=== PATIENT | female | born 1955 | race Hispanic/Latino ===

== ENCOUNTER 2019-07-16 08:20 | Inpatient (IN) | payer BC ==
[2019-07-16] MEDS ORDERED: Lidocaine Viscous Sol 2% 15 ml UD Cup ONE (08:52)
[2019-07-16] MEDS ORDERED: Mag-Al 1200 mg/1200 mg/30 ML UDCUP ONE (08:52)
[2019-07-16 08:55] LABS: #Eosinphils 0.2 thou/uL (0.0-0.7); #Lymphocytes 1.8 thou/uL (1.20-3.40); #Monocytes 0.6 thou/uL (0.11-0.59); %Basophils 0.5 % (0.0-1.0); %Eosinophils 1.7 % (0.0-10.0); %Lymphocytes 18.9 % (21.0-51.0); %Neutrophils 72.9 % (42.0-75.0); Hemoglobin 15.6 g/dL (12.0-16.0); Mean Corpuscular Hemoglobin 30.8 pg (27.0-31.0); Mean Corpuscular Volume 90.7 fL (78.0-98.0); Mean Platelet Volume 7.8 fL (7.4-10.4); Platelet Count 261 thou/uL (130-400); RBC Distribution Width 12.6 % (11.5-14.5); Red Blood Cell (RBC) Count 5.05 mill/uL (4.20-5.40); White Blood Cell (WBC) Count 9.6 thou/uL (4.8-10.8)
[2019-07-16 09:09] LABS: Bilirubin Negative (Negative); Blood, Urine Negative (Negative); Clarity Clear (Clear); Glucose, Urine (Dipstick) Normal (Negative); Leukocyte Negative Leu/uL (Negative); Nitrite Negative (Negative); Protein, Urine (Dipstick) 20 mg/dL (Neg-Trace); Urobilinogen Normal mg/dL (Less than 2)
[2019-07-16 09:09] LABS: ALT (SGPT) 42 U/L (8-55); AST (SGOT) 79 U/L (5-34); Alkaline Phosphatase 95 U/L (40-110); Anion Gap 13 mmol/L (10-20); BUN (Urea Nitrogen) 16 mg/dL (9.8-20.1); Bilirubin, Total 0.7 mg/dL (0.2-1.2); Calc. Creatinine Clearance 0 mL/min (70-130); Calcium 9.2 mg/dL (7.8-10.44); Carbon Dioxide 23 mmol/L (23-31); Chloride 101 mmol/L (98-107); Estimated GFR-MDRD 77; Globulin 3.7 g/dL (2.4-3.5); Glucose 159 mg/dL (80-115); Protein, Total 7.7 g/dL (6.0-8.3); Sodium 133 mmol/L (136-145)
[2019-07-16 09:22] LABS: Lipase 3171 U/L (8-78)
--- NOTE | 2019-07-16 09:23 | ULT ---
Gallbladder ultrasound: Multiple grayscale images of right upper quadrant obtained according to protocol. INDICATION: Pain FINDINGS: Liver: Increased echogenicity Gallbladder: Cholelithiasis. Gallbladder wall: Borderline in size, approximating 3 mm in thickness. Gong's Sign: Negative Common bile duct is normal. Ascites: None IMPRESSION: Cholelithiasis. Borderline size gallbladder wall. Correlate clinically to exclude evidence of cholecy stitis. Increased echogenicity of liver which may represent hepatic steatosis.
--- NOTE | 2019-07-16 10:02 | RAD ---
PORTABLE AP CHEST: Date: 07/16/19 HISTORY: Epigastric pain on and off for 1 year. Pain is worse today. COMPARISON: 08/09/12. FINDINGS: Cardiac silhouette is magnified by projection. Pulmonary vasculature is within normal limits. There i s minimal linear and hazy density at the left lung base which is similar to prior study, likely relat ed to combination of epicardial fat pad and mild linear scarring. This was also seen on CT thorax on 08/13/12. Lungs are otherwise clear. There has been no interval change from the prior exam. IMPRESSION: No acute cardiopulmonary process. POS: C
[2019-07-16] MEDS ORDERED: Morphine 4 MG/ML VIAL ONE (10:13)
[2019-07-16] MEDS ORDERED: Sodium Chloride 0.9% 1,000 ML IV SCH (12:44)
[2019-07-16] MEDS ORDERED: Ondansetron PF 4 MG/2 ML Vial IVP PRN (12:44)
[2019-07-16] MEDS ORDERED: Ondansetron ODT 4 MG TAB SL PRN (12:44)
[2019-07-16 12:45] VITALS: BMI 34.0
[2019-07-16] MEDS ORDERED: HYDROcodone/Acetaminophen 5/325 mg Tablet PO PRN (14:07)
[2019-07-16] MEDS ORDERED: Acetaminophen 325 MG TAB PO PRN (14:07)
[2019-07-16] MEDS ORDERED: Acetaminophen 650 MG Suppository PR PRN (14:07)
[2019-07-16] MEDS ORDERED: HumaLOG 300 UNITS/3 ML VIAL SC PRN ×2 (14:09)
[2019-07-16] MEDS ORDERED: Dextrose 5% in Water 1,000 ML IV PRN (14:09)
[2019-07-16] MEDS ORDERED: Dextrose 50% Abboject 50 ML SYRINGE SLOW IVP PRN (14:09)
[2019-07-16] MEDS ORDERED: Dextrose 5 %-0.45 % NaCl 1,000 ML IV SCH (14:30)
--- NOTE | 2019-07-16 16:00 | PDOC.HHP ---
Hospitalist HPI - History of Present Illness Abdominal pain History of Present Illness: Mrs. Rutledge is a pleasant 64 year old woman presenting with severe abdominal pain, 10/10, that started this morning. She states it was in the epigastric region and sharp. Reports having issues with bouts of abdominal pain for several years that usually would improve with taking in more water. She was seen by her primary care physician and states she was never found to have any issues that explained her pain. Denies any previous EGD. She is unsure what tests were done in the past. In recent months her abdominal pain has become more frequent. She saw her PCP last week and had an abdo ultrasound done which she states was normal. At present her pain is a 5/10 in severity. She feels significantly better than she did this morning. ED Course: In the ED she was given Morphine for pain which did help. She was given 1 L of IV fluids and a GI cocktail. Labs were notable for a lipase of 3,171. GB US showed cholelithiasis with borderline size gallbladder wall. Increased echogenicity of the liver present felt to be due to hepatic steatosis. She was placed NPO and consultations were placed to GI as well as General Surgery. Hospitalist ROS - Review of Systems Constitutional: denies: fever, chills, sweats, weakness, malaise, other Eyes: denies: pain, vision change, conjunctivae inflammation, eyelid inflammation, redness, other ENT: denies: ear pain, ear discharge, nose pain, nose discharge, nose congestion , mouth pain, mouth swelling, throat pain, throat swelling, other Respiratory: denies: cough, dry, shortness of breath, hemoptysis, SOB with excertion, pleuritic pain, sputum, wheezing, other Cardiovascular: denies: chest pain, palpitations, orthopnea, paroxysmal noc. dyspnea, edema, light headedness, other Gastrointestinal: reports: nausea, abdominal pain. denies: vomiting, diarrhea, constipation, melena, hematochezia, other Genitourinary: denies: dysuria, frequency, incontinence, hematuria, retention, other Musculoskeletal: denies: neck pain, shoulder pain, arm pain, back pain, hand pain, leg pain, foot pain, other Skin: denies: rash, lesions, lorena, bruising, other Neurological: denies: weakness, numbness, incoordination, change in speech, confusion, seizures, other - Medication Medications: Active Medications Generic Name Dose Route Start Last Admin Trade Name Billyq PRN Reason Stop Dose Admin Dextrose/Sodium Chloride 1,000 mls @ 50 mls/hr 07/16/19 14:30 07/16/19 15:45 D5 1/2 Ns IV 1,000 mls .Q20H CITLALLI Administration Hospitalist History - Past Medical History Source: patient Cardiac: reports: HTN, Hyperlipidemia Endocrine: reports: Diabetes - Past Surgical History Past Surgical History: reports: Hysterectomy - Family History Family History: reports: no pertinent history - Social History Smoking Status: Never smoker Alcohol: reports: None Drugs: reports: none Activity level: independent ambulation - Exam General Appearance: NAD, awake alert Eye: PERRL, anicteric sclera ENT: normocephalic atraumatic, no oropharyngeal lesions, moist mucosa Neck: supple, symmetric, no JVD, no lymphadenopathy Heart: RRR, no murmur, no gallops, no rubs, normal peripheral pulses Respiratory: CTAB, no wheezes, no rales, no ronchi, normal chest expansion Gastrointestinal: soft, non-tender, non-distended, normal bowel sounds, no palpable masses, no guarding, no rigidity Extremities: no cyanosis, no clubbing, no edema Skin: normal turgor, no lesions, no rashes Neurological: cranial nerve grossly intact Musculoskeletal: normal tone, normal strength, no muscle wasting Psychiatric: normal affect, normal behavior, A&O x 3 Hospitalist Results - Labs Result Diagrams: 07/16/19 08:45 07/16/19 08:45 Lab results: WBC 9.6 thou/uL (4.8-10.8) 07/16/19 08:45 Hgb 15.6 g/dL (12.0-16.0) 07/16/19 08:45 Hct 45.8 % (36.0-47.0) 07/16/19 08:45 MCV 90.7 fL (78.0-98.0) 07/16/19 08:45 Plt Count 261 thou/uL (130-400) 07/16/19 08:45 Neutrophils % 72.9 % (42.0-75.0) 07/16/19 08:45 Sodium 133 mmol/L (136-145) L 07/16/19 08:45 Potassium 4.0 mmol/L (3.5-5.1) 07/16/19 08:45 Chloride 101 mmol/L (98-107) 07/16/19 08:45 Carbon Dioxide 23 mmol/L (23-31) 07/16/19 08:45 BUN 16 mg/dL (9.8-20.1) 07/16/19 08:45 Creatinine 0.76 mg/dL (0.6-1.1) 07/16/19 08:45 Glucose 159 mg/dL (80-115) H 07/16/19 08:45 Calcium 9.2 mg/dL (7.8-10.44) 07/16/19 08:45 Total Bilirubin 0.7 mg/dL (0.2-1.2) 07/16/19 08:45 AST 79 U/L (5-34) H 07/16/19 08:45 ALT 42 U/L (8-55) 07/16/19 08:45 Alkaline Phosphatase 95 U/L (40-110) 07/16/19 08:45 Troponin I Less than 0.010 ng/mL (< 0.028) 07/16/19 08:38 Serum Total Protein 7.7 g/dL (6.0-8.3) 07/16/19 08:45 Albumin 4.0 g/dL (3.4-4.8) 07/16/19 08:45 Lipase 3171 U/L (8-78) H 07/16/19 08:45 Urine Ketones Negative mg/dL (Negative) 07/16/19 08:38 Urine Blood Negative (Negative) 07/16/19 08:38 Urine Nitrite Negative (Negative) 07/16/19 08:38 Ur Leukocyte Esterase Negative Karrie/uL (Negative) 07/16/19 08:38 - Radiology Interpretation US - abdomen Status: report reviewed by me Hospitalist H&P A/P - Problem (1) Abdominal pain Code(s): R10.9 - UNSPECIFIED ABDOMINAL PAIN Status: Acute (2) Pancreatitis Code(s): K85.90 - ACUTE PANCREATITIS WITHOUT NECROSIS OR INFECTION, UNSP Status: Acute (3) Cholelithiasis Code(s): K80.20 - CALCULUS OF GALLBLADDER W/O CHOLECYSTITIS W/O OBSTRUCTION Status: Acute (4) Hypertension Code(s): I10 - ESSENTIAL (PRIMARY) HYPERTENSION Status: Chronic (5) Diabetes mellitus Code(s): E11.9 - TYPE 2 DIABETES MELLITUS WITHOUT COMPLICATIONS Status: Chronic (6) Hyperlipidemia Code(s): E78.5 - HYPERLIPIDEMIA, UNSPECIFIED Status: Chronic - Plan Plan: Continue IVF. Will add-on lactic acid. Lipid panel ordered. Awaiting GI and General Surgery review. Patient for MRCP as per ED physician. Monitor BP. Resume home medication once reconciled. Monitor glucose, will hold home meds and cover with ISS for now. Code Status: FULL. Surrogate decision maker is her daughter Alana Allen. Case discussed with Dr. Obregon who agrees with plan as above.
--- NOTE | 2019-07-16 16:16 | PDOC.EVN ---
Event Note - Event Note Event Note: patient reviewed with Oli STORY. agree with current management. she is being seen by gen surg at this time
--- NOTE | 2019-07-16 16:19 | CON ---
DATE OF CONSULTATION: 07/16/2019 This is Reynaldo Trevizo PA-C dictating a report for Bassam De La Vega DO. REQUESTING PHYSICIAN: Santiago Bradford DO HISTORY OF PRESENT ILLNESS: The patient is a 64-year-old woman, who has had abdominal pain off and on intermittently for greater than a year. This morning, the patient woke with severe epigastric pain significant enough that she came to the emergency department, where she underwent evaluation and examination and was noted to have pancreatitis and also cholelithiasis, at which time, we were asked to evaluate the patient for possible cholecystectomy. The patient denies alcohol use, drug use, fevers, chills, night sweats, or unexplained weight loss. Positive for nausea. No vomiting or diarrhea. The patient has no ill contacts. ALLERGIES: LISINOPRIL. CURRENT MEDICATIONS: Metformin, glipizide, Norvasc. PAST MEDICAL HISTORY: Type 2 diabetes, hyperlipidemia, hypertension. PAST SURGICAL HISTORY: Hysterectomy. SOCIAL HISTORY: The patient lives with family. She smoked cigarettes more than 10 years ago. Denies drug or alcohol use. PHYSICAL EXAMINATION: VITAL SIGNS: Temperature 97.9, heart rate 52, blood pressure 118/63, respirations 16, oxygen saturation 97% on room air. GENERAL: The patient is resting comfortably on the surgical floor. She is in bed. She is awake, alert, and conversant. The patient primarily speaks Turkish, but is able to communicate in Stateless and also had family members at bedside to assist. HEENT: Unremarkable. LUNGS: Clear to auscultation with good inspiratory and expiratory effort. The patient states she did have some slight epigastric pain with deep inspiration. HEART: Regular rate and rhythm. ABDOMEN: Soft, nondistended with a positive Gong sign. Right upper quadrant pain. Tenderness to palpation to mid epigastric, but no gross peritoneal signs. The patient had hypoactive bowel sounds. BACK: Unremarkable. EXTREMITIES: Neurovascularly intact x4. LABORATORY FINDINGS: White blood cell count 9.6, hemoglobin 15.6, hematocrit 45.8, platelets 261. Sodium 133, potassium 4.0, chloride 101, CO2 of 23, BUN 16, creatinine 0.76, glucose 159, total bilirubin 0.7, AST 79, ALT 42, alkaline phosphatase 95. Troponin less than 0.010. Lipase 3171. Urinalysis is unremarkable. RADIOGRAPHIC REPORTS: AP chest x-ray shows no acute cardiopulmonary process. Abdominal ultrasound shows cholelithiasis, borderline gallbladder wall size at 3 mm in thickness. Common bile duct is normal at 5 mm with increased echogenicity of the liver, which may represent hepatic steatosis. ASSESSMENT: 1. Acute pancreatitis. 2. Cholelithiasis. 3. Abdominal pain secondary to above. PLAN: Plan will be to keep the patient n.p.o. Repeat labs in the morning. Fluid resuscitation per the primary team. Has been informed that Gastroenterology will also be evaluating the patient for ERCP or MRCP. We will continue to follow along. We will repeat the labs in the morning, specifically LFTs. The evaluation and examination were done with Dr. De La Vega at the time of dictation. Job ID: [id number]
[2019-07-16 16:24] LABS: Lactic Acid 2.3 mmol/L (0.5-2.2)
[2019-07-16] MEDS: Morphine 4 MG/ML VIAL SLOW IVP SCH ×2 (16:46→19:45)
--- NOTE | 2019-07-16 20:56 | CON ---
DATE OF CONSULTATION: 07/16/2019 REASON FOR CONSULTATION: Abdominal pain. HISTORY OF PRESENT ILLNESS: Ms. Rutledge is a 64-year-old female, who was admitted through the ER with the above problem. History is obtained through translation by her son. Reportedly, the patient has had recurrent episodic severe abdominal pain for the last 5 years. The pain had lasted for almost a year until it hit her again this morning that was the most intense episode that she has had to date. This prompted the ER evaluation. The pain is described as sharp and stabbing, localized in the epigastrium, at times radiating to her back. She did have nausea, but without any vomiting. She denies any fever. She denies having had any dark urine, acholic stool, or jaundice. Currently, the pain has greatly subsided. In the course of ER evaluation, she was noted to have a lipase of 3171 and cholelithiasis on ultrasound. The common bile duct is normal measured at 5 mm. Her LFT showed normal bilirubin and alkaline phosphatase and ALT with mild elevation of AST to 79. Currently, she is fine without any other complaint. PAST MEDICAL HISTORY: 1. Adult onset diabetes. 2. Hyperlipidemia. 3. Hypertension. 4. Status post either tubal ligation or hysterectomy from translation. ALLERGIES: LISINOPRIL. HOME MEDICATIONS: Atorvastatin 10 mg daily, glipizide XL 5 mg daily, Norvasc 10 mg daily, and metformin 500 mg daily. SOCIAL HISTORY: The patient denies any tobacco or alcohol usage. FAMILY HISTORY: Negative for any known GI problem, liver disease, or GI malignancy. REVIEW OF SYSTEMS: Ten-point review of systems did not show any other symptoms other than stated in the HPI. PHYSICAL EXAMINATION: VITAL SIGNS: Temperature is 97.9, blood pressure 117/66, pulse of 50. GENERAL: She is alert, conversant. In no distress. HEENT: Anicteric sclerae. Oropharynx is clear. NECK: Supple. CV: Normal S1 and S2. Regular rate and rhythm. CHEST: Breath sounds. ABDOMEN: Protuberant, but soft and nontender. She has active bowel sounds. No bruit. EXTREMITIES: No edema. LABORATORY DATA: WBCs 9.6, hemoglobin 15.6, and platelet count of 261. Electrolytes within normal range. Creatinine 0.76, bilirubin 0.7, alkaline phosphatase 95, AST 79, ALT 42. Serum lipase 3171. DIAGNOSTIC DATA: Abdominal ultrasound showed cholelithiasis, common bile duct 5 mm. ASSESSMENT: 1. Mild pancreatitis, likely biliary. 2. Cholelithiasis. 3. With normal bilirubin and alkaline phosphatase and ultrasound showing common duct measuring only 5 mm, it is unlikely that she has active choledocholithiasis. It is likely that she had passed a stone and in the process, caused her mild pancreatitis. At this point, there is no indication for endoscopic retrograde cholangiopancreatography. RECOMMENDATION: I would trend her LFT and lipase in the morning. If her lipase decreases and LFTs particularly bilirubin and alkaline phosphatase remained normal, then I would proceed with laparoscopic cholecystectomy with IOC. If she has increase in her LFT, then we will recommend preoperative ERCP. Job ID: [id number]
[2019-07-16] MEDS ORDERED: Famotidine/PF 20 mg/2ml Vial SLOW IVP SCH (21:00)
--- NOTE | 2019-07-17 01:18 | PRG ---
DATE OF SERVICE: 07/16/2019 SUBJECTIVE: The patient was seen this evening during rounds. She was resting comfortably and asleep at the time of my evaluation. Nursing reported no acute events. OBJECTIVE: VITAL SIGNS: Temperature 97.9, pulse 51, respirations 16, oxygen saturation 96% on room air, and blood pressure 129/70. GENERAL: Well appearing elderly female, lying in bed with no signs of acute distress. PULMONARY: Equal chest rise and fall. No signs of acute respiratory distress. ASSESSMENT: 1. Mild acute pancreatitis. 2. Cholelithiasis. 3. Acute abdominal pain, improved. PLAN: GI was consulted, who recommended follow up LFTs and lipase in the morning before further recommendations. The patient will likely receive a laparoscopic cholecystectomy with IOC versus ERCP in the morning depending on laboratory results. Continue current n.p.o. status and pain regimen. Surgery to re-evaluate labs and patient in the morning and coordinate care with GI. Job ID: [id number]
[2019-07-17 04:58] LABS: #Basophils 0.1 thou/uL (0.0-0.2); #Eosinphils 0.2 thou/uL (0.0-0.7); #Lymphocytes 1.4 thou/uL (1.20-3.40); #Monocytes 0.4 thou/uL (0.11-0.59); #Neutrophils 3.3 thou/uL (1.40-6.50); %Basophils 1.1 % (0.0-1.0); %Eosinophils 4.3 % (0.0-10.0); %Lymphocytes 26.3 % (21.0-51.0); %Monocytes 7.4 % (0.0-10.0); %Neutrophils 60.9 % (42.0-75.0); Hemoglobin 14.6 g/dL (12.0-16.0); Mean Corpuscular HGB CONC 33.8 g/dL (32.0-36.0); Mean Corpuscular Volume 91.7 fL (78.0-98.0); Platelet Count 228 thou/uL (130-400); RBC Distribution Width 12.6 % (11.5-14.5); White Blood Cell (WBC) Count 5.4 thou/uL (4.8-10.8)
[2019-07-17 05:20] LABS: ALT (SGPT) 214 U/L (8-55); AST (SGOT) 156 U/L (5-34); Albumin 3.4 g/dL (3.4-4.8); Alkaline Phosphatase 93 U/L (40-110); Anion Gap 10 mmol/L (10-20); BUN (Urea Nitrogen) 13 mg/dL (9.8-20.1); Bilirubin, Total 0.5 mg/dL (0.2-1.2); Calc. Creatinine Clearance 112 mL/min (70-130); Calcium 8.3 mg/dL (7.8-10.44); Carbon Dioxide 25 mmol/L (23-31); Chloride 105 mmol/L (98-107); Cholesterol 153 mg/dl (< 200 Desired); Estimated GFR-MDRD 81; Globulin 3.1 g/dL (2.4-3.5); Glucose 141 mg/dL (80-115); HDL Cholesterol 51 mg/dL (>60 Neg Risk); LDL Cholesterol, Calculated 72 mg/dL; Lipase 442 U/L (8-78); Potassium 3.8 mmol/L (3.5-5.1); Protein, Total 6.5 g/dL (6.0-8.3); Sodium 136 mmol/L (136-145); Triglycerides 151 mg/dL (Less than 150)
[2019-07-17] MEDS ORDERED: traMADol HCl 50 MG TAB PO PRN ×2 (07:42)
[2019-07-17] MEDS ORDERED: Ketorolac Tromethamine 30 MG/ML VIAL IVP PRN (07:42)
[2019-07-17] MEDS ORDERED: Acetaminophen 1,000 MG in Premix Bag 1 BAG IVPB PRN (07:42)
[2019-07-17] MEDS ORDERED: Ondansetron ORAL SOLN. 4 MG/5 ML UDCUP PO PRN ×2 (07:42)
[2019-07-17] MEDS ORDERED: Ondansetron PF 4 MG/2 ML Vial IVP PRN (07:42)
[2019-07-17] MEDS ORDERED: Ketorolac Tromethamine 30 MG/ML VIAL IVP SCH (07:45)
[2019-07-17] MEDS ORDERED: Acetaminophen 1,000 MG in Premix Bag 1 BAG IVPB SCH (07:45)
[2019-07-17] MEDS ORDERED: Bupivacaine HCl 0.5%/Epinephrine 1:200,000/PF 30 ml Vial ONE (07:58)
[2019-07-17] MEDS ORDERED: Fentanyl 100 MCG/2 ML VIAL ONE (08:03)
[2019-07-17] MEDS ORDERED: Midazolam HCl 2 mg/2 ml Vial ONE (08:03)
[2019-07-17] MEDS ORDERED: HYDROmorphone 0.5 MG/0.5 ML SYRINGE ONE (08:04)
[2019-07-17] MEDS ORDERED: Ibuprofen 600 MG TAB PO PRN (08:32)
[2019-07-17] MEDS ORDERED: Acetaminophen 500 MG TAB PO PRN (08:32)
[2019-07-17] MEDS ORDERED: Ketorolac Tromethamine 30 MG/ML VIAL ONE (08:38)
[2019-07-17] MEDS ORDERED: Iothalamate Meglumine 60% 50 ML VIAL FS ONE (08:53)
[2019-07-17] MEDS: Amlodipine 10 MG TAB PO SCH (08:58)
[2019-07-17] MEDS: Atorvastatin Calcium 10 MG TAB PO SCH (08:58)
[2019-07-17] MEDS: metFORMIN 500 MG TAB PO SCH (08:58)
--- NOTE | 2019-07-17 09:35 | CON ---
DATE OF CONSULTATION: HISTORY OF PRESENT ILLNESS: Alana Rutledge is a 64-year-old Turkish-speaking only female, morbidly obese, diabetes, and elevated cholesterol, has been having biliary colic for several years. She had a severe episode and presented to the emergency room with normal liver function test, white count of 5, hemoglobin of 14, lipase minimally elevated at 442, glucose is 100 to 136. She had gallstones on an ultrasound and normal bile duct caliber. Plan is for a laparoscopic video cholecystectomy, cholangiograms, and expect her to be able to be discharged home later today. ALLERGIES: LISINOPRIL. SOCIAL HISTORY: Tobacco and alcohol, none. MEDICATIONS: 1. Atorvastatin. 2. Glipizide. 3. Amlodipine. 4. Metformin. PAST SURGICAL HISTORY: Hysterectomy. PAST MEDICAL HISTORY: Diabetes mellitus and hypertension. REVIEW OF SYSTEMS: Ten-point noncontributory. No history of cardiac symptoms. PHYSICAL EXAMINATION: VITAL SIGNS: Height 5 feet 4 inches, weight 197 pounds, temperature 98.1 degrees, heart rate 51, respiratory rate 16, and blood pressure 115/57. HEAD, EYES, EARS, NOSE, AND THROAT: Unremarkable. LUNGS: Clear to auscultation. CARDIAC: Regular rate and rhythm without murmur or gallop. ABDOMEN: Soft. Mild tenderness in the epigastric and right upper quadrant. No guarding or rebound. EXTREMITIES: Unremarkable. Ankles without edema. No lymphadenopathy. NEUROLOGICAL: Intact. No focal deficit. ASSESSMENT AND PLAN: Cholecystitis, cholelithiasis, perhaps mild pancreatitis, although clinically does not have that now. I recommended laparoscopic video cholecystectomy and cholangiogram. Risks of infection, bleeding, visceral and biliary injury discussed. Questions answered. Postop, the patient will be discharged home. No lifting restriction. She can return to work full activity without lifting restrictions next week. She can shower and bathe today or tomorrow. She should leave the Marceline glue. She should follow up in my office in 2 to 3 weeks. She will be discharged home on Tylenol, ibuprofen, and p.r.n. Ultram. Job ID: [id number]
[2019-07-17] MEDS ORDERED: Ondansetron HCl/PF 4 MG/2 ML Vial IVP PRN (10:09)
[2019-07-17] MEDS ORDERED: HYDROmorphone 2 MG/ML VIAL SLOW IVP PRN (10:09)
[2019-07-17] MEDS ORDERED: PACU-Morphine 4MG/ML VIAL SLOW IVP PRN (10:09)
[2019-07-17] MEDS ORDERED: Promethazine HCl 25 MG/ML VIAL SLOW IVP PRN (10:09)
[2019-07-17] MEDS ORDERED: Promethazine HCl 25 MG/ML VIAL IM PRN (10:09)
[2019-07-17] MEDS ORDERED: Promethazine HCl 25 MG/ML VIAL ONE (10:49)
--- NOTE | 2019-07-17 11:37 | RAD ---
OPERATIVE CHOLANGIOGRAM: HISTORY: Intraoperative film. FINDINGS: These are two images showing filling of a nondilated common duct with emptying into the duodenum. No filling defects are seen. IMPRESSION: Unremarkable operative cholangiogram. POS: TPC
--- NOTE | 2019-07-17 16:31 | OP ---
DATE OF PROCEDURE: 07/17/2019 PREOPERATIVE DIAGNOSES: Biliary pancreatitis, cholecystitis, cholelithiasis, and obesity. POSTOPERATIVE DIAGNOSES: Biliary pancreatitis, cholecystitis, cholelithiasis, and obesity. PROCEDURES PERFORMED: Laparoscopic video cholecystectomy, normal cholangiograms using fluoroscopy. ANESTHESIA: General, local 0.5% Marcaine with epinephrine 30 mL total volume used. DESCRIPTION OF PROCEDURE: The patient was taken to the operating room, where under general anesthesia, abdomen was prepared with ChloraPrep and draped in routine fashion. Local anesthetic was infiltrated in the skin and subcutaneous tissue about the operative sites. Infraumbilical incision was made. Pneumoperitoneum to 15 mmHg was obtained with a Veress needle, replaced with a 5 port, video laparoscope inserted. Right subxiphoid incision was made, and an 11 port placed. Right subcostal incision was made at midclavicular entrance line. The 5 port was placed. Liver appeared to be normal. Gallbladder was acutely inflamed, edematous. Fundus was grasped at the cephalad. Infundibulum was grasped at the laterally cystic artery and duct dissected free. Critical view obtained. Cystic artery and duct were double clipped proximally. Cystic duct was singly clipped on the gallbladder side. Opening was made in the cystic duct. Cholangiocatheter was inserted. Cholangiogram was obtained using fluoroscopy revealing free flow of contrast to the duodenum without filling defects in the small caliber, common hepatic, common bile duct, and right hepatic ducts. Cholangiocatheter was removed. Cystic duct stump was doubly clipped. Cystic artery and duct were divided. Gallbladder was dissected free. Liver bed obtaining good hemostasis prior to division of final peritoneal attachments. Gallbladder and contents were removed, submitted to Pathology. Good hemostasis ensured with cautery. Irrigant and pneumoperitoneum were evacuated. All instruments were removed. All skin incisions were approximated with interrupted subdermal 4-0 Monocryl and [place] glue applied. Job ID: [id number]
--- NOTE | 2019-07-17 18:16 | PRG ---
DATE OF SERVICE: 07/17/2019 SUBJECTIVE: The patient is status post cholecystectomy, has appropriate soreness, but alert. She tolerated diet. No nausea or vomiting. OBJECTIVE: VITAL SIGNS: Temperature is 98.5, blood pressure 127/73, and pulse of 71. GENERAL: She is alert, uncomfortable, but in no distress. CV: Shows normal S1 and S2. Regular rate and rhythm. CHEST: Shows breath sounds. ABDOMEN: Protuberant, soft, and tender. She does have faint bowel sounds. EXTREMITIES: Shows no edema. LABORATORY STUDIES: WBCs 5.4, hemoglobin 14.6, and platelet count 228. Electrolytes within normal range bilirubin 0.5, alkaline phosphatase 93. Intraoperative cholangiogram was normal, no evidence of choledocholithiasis. ASSESSMENT: 1. Mild biliary pancreatitis, resolving. 2. Status post cholecystectomy for cholelithiasis and cholecystitis. 3. No evidence of choledocholithiasis. PLAN: 1. No new GI recommendation. She appears to be doing well following a cholecystectomy with negative high-risk CT. 2. Anticipate discharge tomorrow. GI will sign off. Please call me if needed. Job ID: [id number]
--- NOTE | 2019-07-17 18:50 | PDOC.HOSPP ---
- Subjective Encounter Date: 07/17/19 Encounter Time: 16:00 Subjective: Pt seen for followup re: acute pancreatitis. c/o abd pain. - Objective Vital Signs & Weight: Vital Signs (12 hours) Temp Pulse Resp BP Pulse Ox 07/17/19 15:20 98.5 F 71 14 127/73 94 L 07/17/19 08:58 45 L 07/17/19 07:32 98.1 F 45 L 16 115/57 L 98 Weight Weight 197 lb 15.954 oz I&O: 07/16/19 07/17/19 07/18/19 06:59 06:59 06:59 Intake Total 1000 Balance 1000 Result Diagrams: 07/17/19 04:33 07/17/19 04:33 Additional Labs: Accuchecks 07/17/19 07/16/19 06:10 20:21 POC Glucose 136 H 100 Hospitalist ROS - Review of Systems Cardiovascular: denies: chest pain, palpitations, orthopnea, paroxysmal noc. dyspnea, edema, light headedness Gastrointestinal: reports: nausea, abdominal pain. denies: vomiting, diarrhea, constipation, melena, hematochezia - Medication Medications: Active Medications Generic Name Dose Route Start Last Admin Trade Name Freq PRN Reason Stop Dose Admin Amlodipine Besylate 10 mg 07/17/19 09:00 07/17/19 08:58 Norvasc PO Not Given DAILY [facility] Atorvastatin Calcium 10 mg 07/17/19 09:00 07/17/19 08:58 Lipitor PO Not Given DAILY [facility] Ketorolac Tromethamine 30 mg 07/17/19 07:45 07/17/19 12:56 Toradol IVP 07/22/19 07:46 30 mg ONE CITLALLI Administration Metformin HCl 500 mg 07/17/19 09:00 07/17/19 08:58 Glucophage PO Not Given DAILY [facility] Tramadol HCl 100 mg 07/17/19 07:42 07/17/19 17:47 Ultram PO 100 mg Q6H PRN Administration Pain - Exam General Appearance: NAD Eye: anicteric sclera ENT: moist mucosa Neck: supple, no thyromegaly Heart: RRR Respiratory: CTAB, no ronchi Gastrointestinal: soft, non-tender, normal bowel sounds Psychiatric: normal affect, normal behavior Hosp A/P (1) Acute pancreatitis Code(s): K85.90 - ACUTE PANCREATITIS WITHOUT NECROSIS OR INFECTION, UNSP Status: Acute (2) Cholelithiasis Code(s): K80.20 - CALCULUS OF GALLBLADDER W/O CHOLECYSTITIS W/O OBSTRUCTION Status: Acute (3) Hyperlipidemia Code(s): E78.5 - HYPERLIPIDEMIA, UNSPECIFIED Status: Chronic (4) Hypertension Code(s): I10 - ESSENTIAL (PRIMARY) HYPERTENSION Status: Chronic - Plan Lipase trended down. s/p lap ritu. Home if she can tolerate diet. HTN controlled. Reasonable control of blood sugars.
[2019-07-18 04:06] VITALS: TEMP 98.1
[2019-07-18 07:23] VITALS: BP 156/74
[2019-07-18] MEDS: Atorvastatin Calcium 10 MG TAB PO SCH (08:34)
[2019-07-18] MEDS: Amlodipine 10 MG TAB PO SCH (08:34)
[2019-07-18] MEDS: metFORMIN 500 MG TAB PO SCH (08:34)
--- NOTE | 2019-07-18 18:05 | DIS ---
DATE OF ADMISSION: 07/16/2019 DATE OF DISCHARGE: 07/18/2019 PRIMARY CARE PROVIDER: [facility]. DISCHARGE DIAGNOSES: 1. Acute pancreatitis. 2. Cholelithiasis. CONDITION OF PATIENT ON THE DAY OF DISCHARGE: Stable. I assessed Ms. Rutledge on the day of discharge. She denies any chest pain or shortness of breath. She is tolerating diet. Vital signs are stable. S1 and S2 are heard, regular. Abdomen is soft, nontender. Surgical sites appear clean. CONSULTATIONS DURING THIS HOSPITALIZATION: Gastroenterology, Dr. Delgado and General Surgery, Dr. Smith. DISCHARGE MEDICATIONS: 1. Tramadol p.r.n. 2. Motrin p.r.n. 3. Acetaminophen P.r.n. 4. Metformin 500 mg daily. 5. Glipizide 5 mg daily. 6. Lipitor 10 mg daily. 7. Amlodipine 10 mg daily. HOSPITAL COURSE: Ms. Rutledge is a pleasant 64-year-old lady, who was admitted to [facility] for acute pancreatitis and cholelithiasis on July 16, 2019. She was seen by General Surgery Service. She was treated with intravenous fluids and pain medications. Her lipase improved. She then underwent laparoscopic cholecystectomy on July 17, 2019. She is being discharged home on July 18 in a stable condition. Many thanks for allowing me to participate in your patient's care. Please feel free to contact me with any questions or concerns. POST DISCHARGE FOLLOWUPS: The patient is advised to follow up with primary care provider in 3 days' time and with Dr. Smith, General Surgery, in 2 to 3 weeks. DISCHARGE DESTINATION: Home. TOTAL AMOUNT OF TIME SPENT COORDINATING THIS DISCHARGE: 20 minutes. Job ID: [id number]
--- NOTE | 2019-07-20 03:05 | EKG ---
Test Reason : ER Blood Pressure : / mmHG Vent. Rate : 057 BPM Atrial Rate : 057 BPM P-R Int : 174 ms QRS Dur : 084 ms QT Int : 436 ms P-R-T Axes : 001 -23 065 degrees QTc Int : 424 ms Sinus bradycardia Anterior infarct , age undetermined Abnormal ECG Confirmed by JULIO MCQUEEN D.O. ([id number]), restaurant expeditor LISA DIAZ ([id number] on 07/20/2019 3:05:11 AM Referred By: Confirmed By:JULIO MCQUEEN D.O.
== END 2019-07-18 11:39 | disposition home or self-care (01) | DRG 417 ==
LOC: ERS 08:20 → ERHOLD 11:35 → SURG A 12:33
PROVIDERS: ADMIT Internal Medicine; ATTEND Internal Medicine
PROC: 0FT44ZZ Resection of Gallbladder, Percutaneous Endoscopic Approach (ICD-10-PCS; principal; 2019-07-17)
PROC: BF131ZZ Fluoroscopy of Gallbladder and Bile Ducts using Low Osmolar Contrast (ICD-10-PCS; 2019-07-17)
DX: K80.10 Calculus of gallbladder with chronic cholecystitis without obstruction (principal); K85.10 Biliary acute pancreatitis without necrosis or infection; I10 Essential (primary) hypertension; E78.5 Hyperlipidemia, unspecified; E11.9 Type 2 diabetes mellitus without complications; Z90.710 Acquired absence of both cervix and uterus; Z87.891 Personal history of nicotine dependence; Z88.8 Allergy status to other drugs, medicaments and biological substances; Z68.34 Body mass index [BMI] 34.0-34.9, adult; E66.01 Morbid (severe) obesity due to excess calories
CPT/HCPCS: 36415; 36416; 47532; 71045; 76705; 80053; 80061; 81003; 83605; 83690; 84484; 85025; 88304; 93005; 96360; 96374; J0131; J0670; J1170; J1610; J1885; J2250; J2270; J2550; J3010; S0028

== ENCOUNTER 2019-10-03 12:29 | Outpatient (CLI) | payer BC, OTHER ==
--- NOTE | 2019-10-03 14:06 | MRI ---
MRI RIGHT FOREFOOT WITH AND WITHOUT IV CONTRAST: 10/03/2019 PROVIDED CLINICAL HISTORY: Nonhealing ulcer on right foot. FINDINGS: There is a focal, somewhat circumscribed area of signal abnormality involving the subcutaneous adipos e layer at the dorsal aspect of the great toe IP joint, immediately medial to the extensor hallucis t endon. This demonstrates centrally diminished T1 signal intensity as well as centrally diminished T2 signal intensity. This demonstrates rim enhancement. This measures about 1 cm in AP dimension x about 5 mm in transverse dimension x about 4 mm in dorsal plantar dimension. There is degenerative change noted at the first MTP joint. There is lateral subluxation of the great toe sesamoids. The MTP joint capsules appear intact. There is no regional joint effusion evident. The dorsal extensor and plantar flexor demonstrates an intact MR appearance. There is no evidence for significant regional tenosynovial fluid. No focal concerning regional marrow or muscular signal abnormality is evident. The courses of the reg ional major neurovascular structures appear unremarkable. IMPRESSION: 1. Nonspecific soft tissue mass within the subcutaneous adipose layer dorsal to the great toe metatar sophalangeal joint, as described above. This does not demonstrate typical imaging features for a flui d collection such as an abscess. Correlate with concerns for neoplasm. 2. No evidence for osteomyelitis, infectious myositis or septic arthritis. POS: OFF
== END 2019-10-03 12:30 | disposition home or self-care (01) ==
LOC: MRI 12:29
PROVIDERS: ATTEND Podiatrist
DX: D21.21 Benign neoplasm of connective and other soft tissue of right lower limb, including hip (principal)
CPT/HCPCS: 82565